=== PATIENT | female | born 1985 | race Caucasian/White ===

== ENCOUNTER 2016-12-20 20:17 | Emergency (ER) | payer OTHER ==
[~2016-12-20] VITALS: Ht 154.9 cm; Wt 59.9 kg
[~2016-12-20 20:17] MED LIST: INHALER
--- NOTE | 2016-12-20 20:35 | NUR ---
DR MILTON INTO EVAL PATIENT
[2016-12-20] MEDS ORDERED: HYDROCODONE/APAP 5-325MG TABLET PO ONE (20:45)
[2016-12-20] MEDS ORDERED: ACETAMINOPHEN/CODEINE 300-30 MG TABLET PO ONE (20:45)
[2016-12-20] MEDS ORDERED: HYDROCODONE/APAP 5-325MG TABLET ONE (20:53)
[2016-12-20] MEDS ORDERED: ACETAMINOPHEN/CODEINE 300-30 MG TABLET ONE (20:59)
--- NOTE | 2016-12-20 21:07 | NUR ---
Patient discharged to home in stable conditon. Written and verbal after care instructions given. Patient verbalizes understanding of instructions.
[2016-12-20 21:10] VITALS: BP 140/82
== END 2016-12-20 21:10 | disposition home or self-care (01) ==
LOC: ER 20:18
DX: S80.12XA Contusion of left lower leg, initial encounter (principal); J45.909 Unspecified asthma, uncomplicated; W18.30XA Fall on same level, unspecified, initial encounter; Y93.89 Activity, other specified; Y99.8 Other external cause status; Y92.89 Other specified places as the place of occurrence of the external cause
CPT/HCPCS: 73590; A4663

== ENCOUNTER 2017-01-24 21:40 | Emergency (ER) | payer OTHER ==
[~2017-01-24] VITALS: Ht 154.9 cm; Wt 59.0 kg
--- NOTE | 2017-01-24 22:07 | NUR ---
Dr. Chatman at bedside for eval.
[2017-01-24] MEDS ORDERED: IBUPROFEN 600 MG TABLET PO ONE (22:15)
[2017-01-24] MEDS ORDERED: IBUPROFEN 600 MG TABLET ONE (22:25)
[2017-01-24 23:27] VITALS: BP 100/63
[2017-01-24] MEDS ORDERED: KETOROLAC TROMETHAMINE 30 MG INJ IM ONE (23:30)
[2017-01-24] MEDS ORDERED: KETOROLAC TROMETHAMINE 30 MG INJ ONE (23:36)
== END 2017-01-24 23:28 | disposition home or self-care (01) ==
LOC: ER 21:41
DX: M54.9 Dorsalgia, unspecified (principal); J45.909 Unspecified asthma, uncomplicated
CPT/HCPCS: 71010; A4663; J1885

== ENCOUNTER 2017-02-18 07:26 | Emergency (ER) | payer MEDICAID, OTHER ==
[~2017-02-18] VITALS: Ht 154.9 cm; Wt 59.0 kg
--- NOTE | 2017-02-18 08:19 | NUR ---
DR GREER AT THE BEDSIDE FOR EVAL AND EXAM.
[2017-02-18 08:33] VITALS: BP 101/60
--- NOTE | 2017-02-18 08:33 | NUR ---
Patient discharged to home in stable conditon. Written and verbal after care instructions given. Patient verbalizes understanding of instructions.
== END 2017-02-18 08:34 | disposition home or self-care (01) ==
LOC: ER 07:26
DX: H10.9 Unspecified conjunctivitis (principal); J45.909 Unspecified asthma, uncomplicated
CPT/HCPCS: A4663

== ENCOUNTER 2017-03-06 22:05 | Emergency (ER) | payer MEDICAID, OTHER ==
[~2017-03-06] VITALS: Ht 154.9 cm; Wt 59.0 kg
--- NOTE | 2017-03-06 22:59 | NUR ---
Patient discharged to home in stable conditon. Written and verbal after care instructions given. Patient verbalizes understanding of instructions. Ambulated from ER with stable gait. All belongings with patient.
[2017-03-06 23:01] VITALS: BP 131/68
== END 2017-03-06 23:03 | disposition home or self-care (01) ==
LOC: ER 22:06
DX: S69.91XA Unspecified injury of right wrist, hand and finger(s), initial encounter (principal); J45.909 Unspecified asthma, uncomplicated; W23.0XXA Caught, crushed, jammed, or pinched between moving objects, initial encounter; Y93.89 Activity, other specified; Y92.9 Unspecified place or not applicable; Y99.9 Unspecified external cause status
CPT/HCPCS: 73140; 99284; A4663

== ENCOUNTER 2017-05-23 13:59 | Emergency (ER) | payer OTHER ==
[~2017-05-23] VITALS: Ht 160 cm; Wt 58.5 kg
[2017-05-23] MEDS ORDERED: KETOROLAC TROMETHAMINE 30 MG INJ IM ONE (14:30)
[2017-05-23 14:35] LABS: *BILIRUBIN,URIN NEGATIVE (NEGATIVE); *BLOOD, URINE Trace-intact (NEGATIVE); *CLARITY,URINE SLIGHTLY CLOUDY (CLEAR); *COLOR,URINE YELLOW (YELLOW); *KETONES,URINE NEGATIVE (NEGATIVE); *PROTEIN,URINE NEGATIVE (NEGATIVE); *UROBILINOGEN,URINE 0.2 E.U./dl (NORMAL); LEUKOCYTE ESTERASE ,URINE NEGATIVE (NEGATIVE); NITRITE, URINE NEGATIVE (NEGATIVE); PH,URINE 6.5 (5.0-8.0); UGLUCOSE NEGATIVE (NEGATIVE)
[2017-05-23 14:45] LABS: *URINE HCG, QUAL NEGATIVE (NEGATIVE)
[2017-05-23] MEDS ORDERED: KETOROLAC TROMETHAMINE 30 MG INJ ONE (14:48)
[2017-05-23 14:49] LABS: BACTERIA,URINE FEW /HPF (NONE SEEN); RBC,URINE 0-3 /HPF (0-3); SQUAMOUS EPITHELIAL CELL,UR FEW /HPF (NONE SEEN)
[2017-05-23 14:50] LABS: URINE AMORPHOUS URATE MODERATE /HPF
[2017-05-23 14:53] LABS: BASOPHILS % (AUTO) 0.4 % (0.0-2.0); EOSINOPHILS # (AUTO) 0.1 K/uL (0.0-0.7); HEMATOCRIT 45.8 % (37-47); HEMOGLOBIN 15.1 G/DL (12.0-16.0); LYMPHOCYTES # (AUTO) 1.9 K/UL (0.8-4.8); MEAN CORPUSCULAR HEMOGLOBIN 30.3 UUG (27.0-31.0); MEAN CORPUSCULAR HGB CONC 33 g/dL (32.0-37.0); MEAN CORPUSCULAR VOLUME 92.1 FL (81.0-99.0); MONOCYTES # (AUTO) 0.3 K/UL (0.1-1.30); MONOCYTES % (AUTO) 3.8 % (0.0-11.0); NEUTROPHILS # (AUTO) 5.6 K/UL (1.8-8.9); NEUTROPHILS % (AUTO) 70.8 % (38.5-71.5); PLATELET COUNT (AUTO) 216 K/UL (150-450); RED BLOOD CELL COUNT(AUTO) 4.97 MIL/UL (4.2-5.4); WHITE BLOOD COUNT (AUTO) 7.9 K/UL (4.0-11.2)
[2017-05-23 14:57] LABS: CREATININE 0.9 mg/dL (0.6-1.3)
[2017-05-23 15:03] LABS: TOTAL PROTEIN, SERUM 7.2 g/dL (6.4-8.2)
--- NOTE | 2017-05-23 16:09 | NUR ---
Patient discharged to home in stable conditon. Written and verbal after care instructions given. Patient verbalizes understanding of instructions.
== END 2017-05-23 16:12 | disposition home or self-care (01) ==
LOC: ER 14:01
DX: R10.11 Right upper quadrant pain (principal); R07.81 Pleurodynia; J45.909 Unspecified asthma, uncomplicated
CPT/HCPCS: 36415; 71101; 83690; 84703; 85025; A4663; J1885

== ENCOUNTER 2017-06-01 22:01 | Emergency (ER) | payer OTHER ==
[~2017-06-01] VITALS: Ht 154.9 cm; Wt 61.2 kg
[2017-06-01] MEDS: KETOROLAC TROMETHAMINE 30 MG INJ IM ONE (22:57)
[2017-06-01 23:05] LABS: CREATININE 0.7 mg/dL (0.6-1.3); POTASSIUM 3.8 mmol/L (3.5-5.1)
[2017-06-01 23:08] LABS: BASOPHILS # (AUTO) 0.1 K/uL (0.0-8.0); BASOPHILS % (AUTO) 0.5 % (0.0-2.0); EOSINOPHILS # (AUTO) 0.2 K/uL (0.0-0.7); EOSINOPHILS % (AUTO) 1.6 % (0.0-7.0); HEMATOCRIT 42.2 % (37-47); LYMPHOCYTES % (AUTO) 29.6 % (20.5-51.5); MEAN CORPUSCULAR HEMOGLOBIN 30.7 UUG (27.0-31.0); MEAN CORPUSCULAR HGB CONC 33 g/dL (32.0-37.0); MEAN CORPUSCULAR VOLUME 92.1 FL (81.0-99.0); MONOCYTES # (AUTO) 0.7 K/UL (0.1-1.30); MONOCYTES % (AUTO) 6.5 % (0.0-11.0); NEUTROPHILS # (AUTO) 6.1 K/UL (1.8-8.9); NEUTROPHILS % (AUTO) 61.8 % (38.5-71.5); PLATELET COUNT (AUTO) 226 K/UL (150-450); RED BLOOD CELL COUNT(AUTO) 4.58 MIL/UL (4.2-5.4); WHITE BLOOD COUNT (AUTO) 10.1 K/UL (4.0-11.2)
[2017-06-01 23:10] LABS: BILIRUBIN,DIRECT 0.2 mg/dL (0.0-0.2); BILIRUBIN,TOTAL 0.9 mg/dL (0.2-1.0); TOTAL PROTEIN, SERUM 6.9 g/dL (6.4-8.2)
[2017-06-01] MEDS ORDERED: KETOROLAC TROMETHAMINE 30 MG INJ ONE (23:10)
[2017-06-01 23:50] LABS: *URINE HCG, QUAL NEGATIVE (NEGATIVE)
--- NOTE | 2017-06-01 23:53 | NUR ---
PATIENT OUT OF UNIT FOR CT SCAN VIA WHEELCHAIR
[2017-06-02 00:02] LABS: *BILIRUBIN,URIN NEGATIVE (NEGATIVE); *BLOOD, URINE 1+ (NEGATIVE); *CLARITY,URINE CLOUDY (CLEAR); *COLOR,URINE YELLOW (YELLOW); *KETONES,URINE NEGATIVE (NEGATIVE); *PROTEIN,URINE NEGATIVE (NEGATIVE); *UROBILINOGEN,URINE 0.2 E.U./dl (NORMAL); LEUKOCYTE ESTERASE ,URINE 3+ (NEGATIVE); NITRITE, URINE POSITIVE (NEGATIVE); UGLUCOSE NEGATIVE (NEGATIVE)
--- NOTE | 2017-06-02 00:15 | NUR ---
PATIENT BACK FROM CT SCAN WITH NO DISTRESS NOTED
[2017-06-02 00:22] LABS: BACTERIA,URINE MANY /HPF (NONE SEEN); SQUAMOUS EPITHELIAL CELL,UR MODERATE /HPF (NONE SEEN); WBC,URINE 80-100 /HPF (0-3)
[2017-06-02] MEDS: CEPHALEXIN MONOHYDRATE 500 MG CAPSULE PO ONE (01:50)
[2017-06-02] MEDS ORDERED: CEPHALEXIN MONOHYDRATE 500 MG CAPSULE ONE (02:00)
[2017-06-02] MEDS: HYDROCODONE/APAP 5-325MG TABLET PO ONE (02:38)
--- NOTE | 2017-06-02 02:50 | NUR ---
PATIENT IN ROOM SLEEPING ON GURNY WITH NO DISTRESS NOTED
[2017-06-02] MEDS ORDERED: HYDROCODONE/APAP 5-325MG TABLET ONE (02:53)
[2017-06-02] MEDS: PANTOPRAZOLE SODIUM 40 MG TABLET.DR PO ONE (03:21)
--- NOTE | 2017-06-02 03:28 | NUR ---
Patient discharged to home in stable conditon WITH FRIEND TAKING PATIENT HOME. Written and verbal after care instructions given. Patient verbalizes understanding of instructions. WALKED OUT OF ER WITH NO DISTRESS NOTED
[2017-06-02 03:29] VITALS: BP 110/76
[2017-06-02] MEDS ORDERED: PANTOPRAZOLE SODIUM 40 MG TABLET.DR PO ONE (03:34)
== END 2017-06-02 03:29 | disposition home or self-care (01) ==
LOC: ER 22:02
DX: R10.9 Unspecified abdominal pain (principal); J45.909 Unspecified asthma, uncomplicated
CPT/HCPCS: 36415 ×2; 74176; 80048; 80076; 81001; 83690; 84703 ×2; 85025; 85379; 96372; 99285; A4663; J1885; 87086

== ENCOUNTER 2017-10-06 08:02 | Emergency (ER) | payer SELFPAY ==
[~2017-10-06] VITALS: Ht 154.9 cm; Wt 61.2 kg
[2017-10-06 08:30] VITALS: BP 120/70
--- NOTE | 2017-10-06 08:33 | NUR ---
Patient discharged to home in stable conditon. Written and verbal after care instructions given. Patient verbalizes understanding of instructions.
== END 2017-10-06 08:30 | disposition home or self-care (01) ==
LOC: ER 08:02
DX: H10.9 Unspecified conjunctivitis (principal); J45.909 Unspecified asthma, uncomplicated
CPT/HCPCS: A4663

== ENCOUNTER 2017-11-01 07:17 | Emergency (ER) | payer SELFPAY ==
[~2017-11-01] VITALS: Ht 154.9 cm; Wt 61.2 kg
[2017-11-01 08:26] VITALS: BP 132/55
--- NOTE | 2017-11-01 08:27 | NUR ---
mse completed, pt d/c'd home, aci/rx x1 given. pt ambulated w/o diff/took all belongings.
== END 2017-11-01 08:27 | disposition home or self-care (01) ==
LOC: ER 07:17
DX: J40 Bronchitis, not specified as acute or chronic (principal)
CPT/HCPCS: 36415; 71045; 86403; 87070; A4663

== ENCOUNTER 2018-04-05 22:38 | Emergency (ER) | payer MEDICAID ==
[~2018-04-05] VITALS: Ht 154.9 cm; Wt 67.1 kg
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
[2018-04-05 23:34] LABS: *URINE HCG, QUAL NEGATIVE (NEGATIVE)
[2018-04-05 23:38] LABS: BILIRUBIN,TOTAL 1.3 mg/dL (0.2-1.0); CREATININE 0.8 mg/dL (0.6-1.3); POTASSIUM 3.6 mmol/L (3.5-5.1); TOTAL PROTEIN, SERUM 7.6 g/dL (6.4-8.2)
[2018-04-05 23:39] LABS: BASOPHILS % (AUTO) 0.3 % (0.0-2.0); EOSINOPHILS % (AUTO) 0.5 % (0.0-7.0); HEMATOCRIT 42.1 % (31.2-41.9); HEMOGLOBIN 14.6 g/dL (10.9-14.3); LYMPHOCYTES # (AUTO) 1.1 K/uL (20.0-40.0); LYMPHOCYTES % (AUTO) 14.7 % (20.5-51.5); MEAN CORPUSCULAR HEMOGLOBIN 32.1 uug (24.7-32.8); MEAN CORPUSCULAR HGB CONC 35 g/dL (32.3-35.6); MEAN CORPUSCULAR VOLUME 92.5 fL (75.5-95.3); MONOCYTES # (AUTO) 0.5 K/uL (2.0-10.0); MONOCYTES % (AUTO) 6.1 % (0.0-11.0); NEUTROPHILS # (AUTO) 5.9 K/uL (1.8-8.9); NEUTROPHILS % (AUTO) 78.4 % (38.5-71.5); PLATELET COUNT (AUTO) 199 K/uL (179-408); RED BLOOD CELL COUNT(AUTO) 4.56 MIL/uL (3.63-4.92); WHITE BLOOD COUNT (AUTO) 7.6 K/uL (3.8-11.8)
[2018-04-05 23:51] LABS: *BILIRUBIN,URIN NEGATIVE (NEGATIVE); *BLOOD, URINE Trace-intact (NEGATIVE); *COLOR,URINE YELLOW (YELLOW); *KETONES,URINE NEGATIVE (NEGATIVE); *PROTEIN,URINE NEGATIVE (NEGATIVE); *UROBILINOGEN,URINE 0.2 E.U./dl (NORMAL); LEUKOCYTE ESTERASE ,URINE NEGATIVE (NEGATIVE); NITRITE, URINE NEGATIVE (NEGATIVE); UGLUCOSE NEGATIVE (NEGATIVE)
[2018-04-06 00:10] LABS: *CLARITY,URINE SLIGHTLY CLOUDY (CLEAR)
[2018-04-06 00:12] LABS: BACTERIA,URINE FEW /HPF (NONE SEEN); SQUAMOUS EPITHELIAL CELL,UR MANY /HPF (NONE SEEN); WBC,URINE 0-3 /HPF (0-3)
[2018-04-06 00:13] LABS: MUCUS,URINE MANY /LPF (0-FEW)
--- NOTE | 2018-04-06 01:23 | NUR ---
ER MD at bedside for patient update. Visitor is cooperative during this time, and is compliant throughout MD update of patient.
--- NOTE | 2018-04-06 01:24 | NUR ---
Patient discharged to home in stable conditon. Written and verbal after care instructions given. Patient verbalizes understanding of instructions. Ambulated from ER with stable gait. All belongings with patient. VSS
[2018-04-06 01:25] VITALS: BP 131/84
== END 2018-04-06 01:26 | disposition home or self-care (01) ==
LOC: ER 22:40
DX: R53.1 Weakness (principal); R11.2 Nausea with vomiting, unspecified; J45.909 Unspecified asthma, uncomplicated
CPT/HCPCS: 36415; 84703; 85025; A4663

== ENCOUNTER 2018-04-30 16:48 | Emergency (ER) | payer MEDICAID ==
[~2018-04-30] VITALS: Ht 154.9 cm; Wt 63.5 kg
[2018-04-30] MEDS ORDERED: IBUPROFEN 600 MG TABLET ONE (17:27)
[2018-04-30] MEDS ORDERED: PANTOPRAZOLE SODIUM 40 MG TABLET.DR PO ONE ×2 (17:27→17:30)
[2018-04-30] MEDS ORDERED: IBUPROFEN 600 MG TABLET PO ONE (17:30)
[2018-04-30 17:33] LABS: *BILIRUBIN,URIN NEGATIVE (NEGATIVE); *BLOOD, URINE 2+ (NEGATIVE); *CLARITY,URINE SLIGHTLY CLOUDY (CLEAR); *COLOR,URINE YELLOW (YELLOW); *KETONES,URINE TRACE (NEGATIVE); *PROTEIN,URINE NEGATIVE (NEGATIVE); *UROBILINOGEN,URINE 0.2 E.U./dl (NORMAL); LEUKOCYTE ESTERASE ,URINE NEGATIVE (NEGATIVE); NITRITE, URINE NEGATIVE (NEGATIVE); PH,URINE 5.5 (5.0-8.0); UGLUCOSE NEGATIVE (NEGATIVE)
[2018-04-30 17:34] LABS: *URINE HCG, QUAL NEGATIVE (NEGATIVE)
[2018-04-30 17:38] LABS: CALCIUM OXALATE CRYSTALS,UR MANY /HPF (NONE SEEN); RBC,URINE 20-50 /HPF (0-3); SQUAMOUS EPITHELIAL CELL,UR FEW /HPF (NONE SEEN); WBC,URINE 0-3 /HPF (0-3)
[2018-04-30 17:39] LABS: MUCUS,URINE MANY /LPF (0-FEW)
--- NOTE | 2018-04-30 18:52 | NUR ---
Patient discharged to home in stable conditon. Written and verbal after care instructions given. Patient verbalizes understanding of instructions.
== END 2018-04-30 18:54 | disposition home or self-care (01) ==
LOC: ER 16:49
DX: R10.2 Pelvic and perineal pain (principal); R31.9 Hematuria, unspecified; J45.909 Unspecified asthma, uncomplicated
CPT/HCPCS: 76770; 76856; 81001; 84703; 99285; A4663

== ENCOUNTER 2018-09-14 08:52 | Emergency (ER) | payer MEDICAID ==
[~2018-09-14] VITALS: Ht 154.9 cm; Wt 63.5 kg
[2018-09-14] MEDS ORDERED: IBUPROFEN 600 MG TABLET PO ONE (09:30)
[2018-09-14] MEDS ORDERED: IBUPROFEN 600 MG TABLET ONE (09:33)
--- NOTE | 2018-09-14 09:34 | NUR ---
patient was seen by MD. Ibuprofen given as ordered. DC ,Rx and follow up instructions given and explained to patient who states she understands all instructions.
== END 2018-09-14 09:36 | disposition home or self-care (01) ==
LOC: ER 08:52
DX: H60.93 Unspecified otitis externa, bilateral (principal); H61.23 Impacted cerumen, bilateral; J45.909 Unspecified asthma, uncomplicated
CPT/HCPCS: A4663

== ENCOUNTER 2018-12-12 13:33 | Emergency (ER) | payer MEDICAID ==
[~2018-12-12] VITALS: Ht 152.4 cm; Wt 63.5 kg
[2018-12-12 14:54] LABS: BASOPHILS % (AUTO) 0.3 % (0.0-2.0); EOSINOPHILS # (AUTO) 0.1 K/uL (0.0-0.7); EOSINOPHILS % (AUTO) 0.6 % (0.0-7.0); HEMATOCRIT 42.3 % (31.2-41.9); HEMOGLOBIN 14.3 g/dL (10.9-14.3); LYMPHOCYTES # (AUTO) 1.4 K/uL (20.0-40.0); LYMPHOCYTES % (AUTO) 9.7 % (20.5-51.5); MEAN CORPUSCULAR HEMOGLOBIN 30.5 uug (24.7-32.8); MEAN CORPUSCULAR HGB CONC 34 g/dL (32.3-35.6); MEAN CORPUSCULAR VOLUME 90.6 fL (75.5-95.3); MONOCYTES # (AUTO) 0.7 K/uL (2.0-10.0); MONOCYTES % (AUTO) 4.7 % (0.0-11.0); NEUTROPHILS # (AUTO) 12.1 K/uL (1.8-8.9); NEUTROPHILS % (AUTO) 84.7 % (38.5-71.5); PLATELET COUNT (AUTO) 211 K/uL (179-408); RED BLOOD CELL COUNT(AUTO) 4.67 MIL/uL (3.63-4.92); WHITE BLOOD COUNT (AUTO) 14.3 K/uL (3.8-11.8)
[2018-12-12 15:11] LABS: CREATININE 0.6 mg/dL (0.6-1.3)
[2018-12-12] MEDS ORDERED: LIDOCAINE VISCUS 2% 15 ML UDC MM ONE (15:45)
[2018-12-12] MEDS ORDERED: MAG HYDROX/AL HYDROX/SIMETH 30 ML LIQUID UDC PO ONE (15:45)
[2018-12-12] MEDS ORDERED: KETOROLAC TROMETHAMINE 30 MG INJ IM ONE (15:45)
[2018-12-12] MEDS ORDERED: KETOROLAC TROMETHAMINE 30 MG INJ ONE (15:57)
[2018-12-12] MEDS ORDERED: MAG HYDROX/AL HYDROX/SIMETH 30 ML LIQUID UDC ONE (15:57)
[2018-12-12] MEDS ORDERED: LIDOCAINE VISCUS 2% 15 ML UDC ONE (15:57)
--- NOTE | 2018-12-12 17:00 | NUR ---
Patient discharged to home in stable conditon. Written and verbal after care instructions given. Patient verbalizes understanding of instructions.PT WALKS IN STEADY GAIT. NO SIGN OF DISTRESS.
[2018-12-12 17:02] VITALS: BP 132/79
== END 2018-12-12 17:03 | disposition home or self-care (01) ==
LOC: ER 13:33
DX: M54.9 Dorsalgia, unspecified (principal); R11.10 Vomiting, unspecified; J39.2 Other diseases of pharynx; J45.909 Unspecified asthma, uncomplicated
CPT/HCPCS: 36415; 71045; 80048; 85025; 86403; 87070; 96372; 99284; J1885; A4663

== ENCOUNTER 2022-11-09 11:25 | Emergency (ER) | payer MEDICAID ==
[~2022-11-09] VITALS: Ht 154.9 cm; Wt 73.9 kg
--- NOTE | 2022-11-09 11:36 | NUR ---
PT IS IN ROOM #2A. DR HERBERT EVALUATED THE PT.
[2022-11-09] MEDS ORDERED: ALBU18HF2 INH (11:52)
[2022-11-09] MEDS ORDERED: IBUP-1955 PO (11:52)
--- NOTE | 2022-11-09 12:04 | NUR ---
PT WAS D/C'd TO HOME. D/C INSTRUCTIONS GIVEN TO THE PT BY DR HERBERT.
[2022-11-09 12:06] VITALS: BP 136/72
== END 2022-11-09 12:07 | disposition home or self-care (01) ==
LOC: ER 11:25
DX: H92.03 Otalgia, bilateral (principal); J06.9 Acute upper respiratory infection, unspecified; R05.9 Cough, unspecified; J45.909 Unspecified asthma, uncomplicated
CPT/HCPCS: A4663

== ENCOUNTER 2023-01-18 20:15 | Emergency (ER) | payer MEDICAID ==
[~2023-01-18 20:15] MED LIST changes: +ALBU18HF2 INH; +IBUP-1955 PO; -INHALER
--- NOTE | 2023-01-18 20:40 | NUR ---
PT WAS CALLED IN WAITING RM. NO ANSWER.
--- NOTE | 2023-01-18 22:30 | NUR ---
PT WAS CALLED IN WAITING RM. NO ANSWER.
--- NOTE | 2023-01-19 00:33 | NUR ---
PT CALLED A THIRD TIME. NO ONE IN THE WAITING RM.
== END 2023-01-19 00:35 | disposition left against medical advice (07) ==
LOC: ER 20:17
DX: Z53.21 Procedure and treatment not carried out due to patient leaving prior to being seen by health care provider (principal)

== ENCOUNTER 2023-03-16 05:42 | Emergency (ER) | payer MEDICAID ==
[~2023-03-16] VITALS: Ht 154.9 cm; Wt 65.8 kg
[2023-03-16] MEDS ORDERED: FLUT12AE20 INH (06:29)
[2023-03-16] MEDS ORDERED: ALBU0.63 NEB (06:29)
[2023-03-16] MEDS ORDERED: ALBU6.7H9 INH (06:29)
[2023-03-16 06:40] VITALS: BP 122/77; TEMP 97.5; O2SAT 99
== END 2023-03-16 06:40 | disposition home or self-care (01) ==
LOC: ER 05:46
DX: J45.909 Unspecified asthma, uncomplicated (principal); Z79.1 Long term (current) use of non-steroidal anti-inflammatories (NSAID); Z79.899 Other long term (current) drug therapy
CPT/HCPCS: A4663

== ENCOUNTER 2023-05-02 16:53 | Emergency (ER) | payer MEDICAID ==
[~2023-05-02 16:53] MED LIST changes: +ALBU0.63 NEB; +ALBU6.7H9 INH; +FLUT12AE20 INH
== END 2023-05-02 17:10 | disposition left against medical advice (07) ==
LOC: ER 17:00
DX: Z53.21 Procedure and treatment not carried out due to patient leaving prior to being seen by health care provider (principal)

== ENCOUNTER 2023-05-02 17:38 | Emergency (ER) | payer MEDICAID ==
[~2023-05-02] VITALS: Ht 154.9 cm; Wt 70.3 kg
[2023-05-02 18:57] VITALS: BP 121/60; TEMP 98.2; O2SAT 99
== END 2023-05-02 18:57 | disposition home or self-care (01) ==
LOC: ER 17:40
DX: S61.306A Unspecified open wound of right little finger with damage to nail, initial encounter (principal); J45.909 Unspecified asthma, uncomplicated; Z79.1 Long term (current) use of non-steroidal anti-inflammatories (NSAID); Z79.899 Other long term (current) drug therapy; X58.XXXA Exposure to other specified factors, initial encounter; Y93.89 Activity, other specified; Y92.89 Other specified places as the place of occurrence of the external cause; Y99.8 Other external cause status
CPT/HCPCS: 73140; A4606; A4663

== ENCOUNTER 2023-05-29 12:38 | Emergency (ER) | payer MEDICAID, OTHER ==
[~2023-05-29] VITALS: Ht 154.9 cm; Wt 70.3 kg
[2023-05-29 13:10] VITALS: O2SAT 99
[2023-05-29] MEDS ORDERED: predniSONE 20 MG TABLET ONE (13:10)
[2023-05-29] MEDS ORDERED: ALBUTEROL SULFATE 2.5 MG/3 ML NEBU ONE (13:14)
[2023-05-29] MEDS ORDERED: predniSONE 10 MG TABLET PO ONE (13:15)
[2023-05-29] MEDS ORDERED: ALBUTEROL SULFATE 2.5 MG/3 ML NEBU NEB ONE (13:15)
[2023-05-29 13:25] VITALS: O2SAT 99
[2023-05-29 13:28] LABS: CALCIUM 8.9 mg/dL (8.5-10.1); CARBON DIOXIDE 27 mmol/L (21-32); CHLORIDE 103 mmol/L (98-107); CREATININE 0.8 mg/dL (0.6-1.3); GLUCOSE 71 mg/dL (74-106); POTASSIUM 3.3 mmol/L (3.5-5.1); SODIUM SERUM 141 mmol/L (136-145); UREA NITROGEN, BLOOD 10 mg/dL (7-18)
[2023-05-29 13:31] LABS: BASOPHILS # (AUTO) 0.1 K/UL (0.0-0.2); BASOPHILS % (AUTO) 0.8 % (0.0-2.0); EOSINOPHILS # (AUTO) 0.4 K/uL (0.0-0.7); EOSINOPHILS % (AUTO) 5.2 % (0.0-7.0); HEMATOCRIT 44.1 % (31.2-41.9); HEMOGLOBIN 14.9 g/dL (10.9-14.3); LYMPHOCYTES % (AUTO) 25.1 % (20.5-51.5); MEAN CORPUSCULAR HEMOGLOBIN 31.2 uug (24.7-32.8); MEAN CORPUSCULAR HGB CONC 34 g/dL (32.3-35.6); MONOCYTES # (AUTO) 0.5 K/uL (0.1-1.30); MONOCYTES % (AUTO) 6.8 % (0.0-11.0); NEUTROPHILS # (AUTO) 4.8 K/uL (1.8-8.9); NEUTROPHILS % (AUTO) 62.1 % (38.5-71.5); PLATELET COUNT (AUTO) 236 K/uL (179-408); RED BLOOD CELL COUNT(AUTO) 4.79 MIL/uL (3.63-4.92); RED CELL DISTRIBUTION WIDTH 13.9 % (12.3-17.7); WHITE BLOOD COUNT (AUTO) 7.8 K/uL (3.8-11.8)
[2023-05-29 13:41] LABS: ALANINE AMINOTRANSFERASE 42 U/L (14-59); ALBUMIN 3.8 g/dL (3.4-5.0); ALKALINE PHOSPHATASE 83 U/L (50-136); ASPARTATE AMINOTRANSFERASE 23 U/L (15-37); BILIRUBIN,DIRECT 0.2 mg/dL (0.0-0.2); BILIRUBIN,TOTAL 1.4 mg/dL (0.2-1.0); DIFFERENTIAL COMMENT 1; NT-PRO BNP 12 pg/mL (0-125); TOTAL PROTEIN, SERUM 7.2 g/dL (6.4-8.2)
[2023-05-29] MEDS ORDERED: ALBU8.5H8 INH (14:33)
[2023-05-29] MEDS ORDERED: PRED50TA PO (14:33)
[2023-05-29] MEDS ORDERED: FLUT12AE20 INH (14:43)
[2023-05-29 14:44] VITALS: O2SAT 97
== END 2023-05-29 14:47 | disposition home or self-care (01) ==
LOC: ER 12:40
DX: J45.901 Unspecified asthma with (acute) exacerbation (principal); R10.2 Pelvic and perineal pain; Z79.899 Other long term (current) drug therapy
CPT/HCPCS: 99285; 71045; 80076; 80048; 83880; 85025; 85379; 84484; 84702; 36415; 93005; 94640; J7512; A4606; A4663